=== PATIENT | female | born 1970 | race Two or more races ===

== ENCOUNTER 2022-04-24 06:29 | Day surgery (SDC) | payer OTHER ==
[~2022-04-24] VITALS: Ht 160 cm; Wt 111.1 kg
[~2022-04-24 06:29] MED LIST: FLEXERIL PO; GLUMETZA1000 MG PO; LANTUS; RAMIP PO; TOPROL XL50 M1 PO; ULTRAM50 MG PO; VALIUM PO
== END 2022-04-24 17:35 | disposition home or self-care (01) ==
LOC: CIR.AMB 06:29
PROVIDERS: ATTEND Surgery
DX: D17.1 Benign lipomatous neoplasm of skin and subcutaneous tissue of trunk (principal); Z20.822 Contact with and (suspected) exposure to COVID-19; Z88.2 Allergy status to sulfonamides; Z91.013 Allergy to seafood; I10 Essential (primary) hypertension; Z86.16 Personal history of COVID-19; E11.9 Type 2 diabetes mellitus without complications; Z79.84 Long term (current) use of oral hypoglycemic drugs
CPT/HCPCS: 19101; 19281; L8699